=== PATIENT | female | born 1960 | race Caucasian/White ===

== ENCOUNTER 2025-07-16 06:27 | Day surgery (SDC) | payer MEDICARE ==
[2025-07-16] MEDS ORDERED: Lactated Ringers 1,000 ML IV ONE (06:47)
[2025-07-16] MEDS: Lactated Ringers 1,000 ML IV SCH (07:08)
[2025-07-16] MEDS ORDERED: propofoL IV ONE ×2 (08:09→08:30)
[2025-07-16] MEDS ORDERED: Versed 2 MG/2 ML Injection ONE (08:09)
[2025-07-16] MEDS ORDERED: Xylocaine-Mpf 2% 5 Ml Vial ONE (08:09)
[2025-07-16 09:32] VITALS: RESP 16; O2SAT 100
[2025-07-16 09:52] VITALS: BP 144/82; PULSE 67; TEMP 97.4
--- NOTE | 2025-07-17 10:52 | OP ---
SURGERY DATE/TIME: 07/16/2025 [id number] PREOPERATIVE DIAGNOSIS: Positive Cologuard screen. POSTOPERATIVE DIAGNOSES: 1) Small polyp in the sigmoid colon. 2) Sigmoid diverticulosis. PROCEDURE: Colonoscopy with cold forceps biopsy. SURGEON: Stephen Mejia MD. ANESTHESIA: Medication given by the anesthesia department. INDICATIONS: The patient is a 65-year-old white female, presenting now for history of positive Cologuard testing. The patient was felt to need endoscopic evaluation. She was appraised of the risks of the procedure including risk of perforation, phlebitis, untoward reaction to medication, bleeding, and missed lesions. The patient verbalized her understanding and desired to have procedure performed. DESCRIPTION OF PROCEDURE AND FINDINGS: The patient was given medication by the anesthesia department. She had continuous pulse oximetry, ECG monitoring, and intermittent blood pressure monitoring during the examination. She was placed in left lateral decubitus position. Digital rectal examination was performed and revealed normal anal sphincter tone and no masses. The flexible Olympus videocolonoscope was used to intubate the rectum. A view of the colon was developed sequentially to the cecum. Upon insertion and withdrawal, there was noted to be moderate sigmoid diverticulosis. There was also noted a small polyp in the sigmoid colon. This was destroyed using 3 passes of a cold forceps biopsy instrument. With no other mucosal lesions being encountered, the scope was removed from the patient, who tolerated the procedure well, and was sent back to outpatient recovery in good condition. The prep was noted to be fair.
== END 2025-07-16 09:52 | disposition home or self-care (01) ==
LOC: SDC 06:27
PROVIDERS: ATTEND Family Medicine
DX: D12.5 Benign neoplasm of sigmoid colon (principal); R19.5 Other fecal abnormalities; K57.30 Diverticulosis of large intestine without perforation or abscess without bleeding